=== PATIENT | male | born 1970 | race Caucasian/White ===

== ENCOUNTER 2019-12-30 16:11 | Emergency (ER) | payer SELFPAY ==
[~2019-12-30] VITALS: Ht 177.8 cm; Wt 95.0 kg
[2019-12-30 16:22] VITALS: BP 141/101
--- NOTE | 2019-12-30 16:36 | PHYS DOC ---
Past Medical History Past Medical History: A-Fib Past Surgical History: Other (LEFT BICEP TENDON SURGERY) General Adult EDM: Chief Complaint: UPPER EXTREMITY PAIN HPI: HPI: Patient is a 49 year old male who presented to ER with left arm pain after he [place] He heard a loud pop in his left shoulder and then started having severe pain at the proximal part of left bicep area. He felt like he ruptured the bicep tendon. He torn the same tendon in the past, had surgery to fix it. He called his Orthopedic surgeon in [place] who will see him on Tuesday when he get back home. Patient came here for pain control. He denied any numbness on left upper extremity. Review of Systems: Review of Systems: Constitutional: Denies fever or chills. [] Eyes: Denies change in visual acuity. [] HENT: Denies nasal congestion or sore throat. [] Respiratory: Denies cough or shortness of breath. [] Cardiovascular: Denies chest pain or edema. [] GI: Denies abdominal pain, nausea, vomiting, bloody stools or diarrhea. [] : Denies dysuria. [] Musculoskeletal: Positive for left arm pain. Integument: Denies rash. [] Neurologic: Denies headache, focal weakness or sensory changes. [] Endocrine: Denies polyuria or polydipsia. [] Lymphatic: Denies swollen glands. [] Psychiatric: Denies depression or anxiety. [] Heart Score: Risk Factors: Risk Factors: DM, Current or recent (<one month) smoker, HTN, HLP, family history of CAD, obesity. Risk Scores: Score 0 - 3: 2.5% MACE over next 6 weeks - Discharge Home Score 4 - 6: 20.3% MACE over next 6 weeks - Admit for Clinical Observation Score 7 - 10: 72.7% MACE over next 6 weeks - Early Invasive Strategies Physical Exam: PE: Constitutional: Well developed, well nourished, no acute distress, non-toxic appearance. [] HENT: Normocephalic, atraumatic, bilateral external ears normal, oropharynx moist, no oral exudates, nose normal. [] Eyes: PERRLA, EOMI, conjunctiva normal, no discharge. [] Neck: Normal range of motion, no tenderness, supple, no stridor. [] Cardiovascular:Heart rate regular rhythm, no murmur [] Lungs & Thorax: Bilateral breath sounds clear to auscultation [] Abdomen: Bowel sounds normal, soft, no tenderness, no masses, no pulsatile masses. [] Skin: Warm, dry, no erythema, no rash. [] Back: No tenderness, no CVA tenderness. [] Extremities: There is an indentation at the proximal head of left bicep tendon, very tender to palpation. Neurologic: Alert and oriented X 3, normal motor function, normal sensory function, no focal deficits noted. [] Psychologic: Affect normal, judgement normal, mood normal. [] EKG: EKG: [] Radiology/Procedures: Radiology/Procedures: [][facility] [address] [place] [address] IMAGING REPORT Signed PATIENT: STEVO BENÍTEZ ACCOUNT: [id number] : 1970 LOCATION: ER AGE: 49 SEX: M EXAM STATUS: DEP ER ORD. PHYSICIAN: GENTRY SNYDER DO REASON: LEFT SHOULDER INJURED, BICEP TENDON RUPTURE? PROCEDURE: SHOULDER 2+V LEFT Exam: Left shoulder 3 views and left humerus 2 views INDICATION: Left shoulder injury, left arm pain TECHNIQUE: Frontal view of the left shoulder with internal and external rotation with transscapular Y views. Frontal and lateral views of the left humerus Comparisons: None FINDINGS: Shoulder: Bone mineralization is normal. No acute or healed fractures. Soft tissues are unremarkable. The acromioclavicular joint appears mildly widened. Humerus: Bone mineralization is normal. No acute or healed fractures. Soft tissues are unremarkable. Joint spaces are well-maintained. IMPRESSION: 1. Left acromioclavicular joint appears mildly widened. Consider bilateral AC joint views for further evaluation. 2. No acute osseous abnormality of the left humerus. Electronically signed by: Tracey Trinidad MD (12/30/2019 5:35 PM) [id number] DICTATED and SIGNED BY: TRACEY TRINIDAD MD DATE: 12/30/19 1735 Course & Med Decision Making: Course & Med Decision Making Pertinent Labs and Imaging studies reviewed. (See chart for details) Patient patient is a 49-year-old male who was evaluated in ER due to left bicep tendon injury. He has history of left bicep tendon rupture in the past status post surgery. Patient will need to follow-up with his orthopedic surgeon next week for further evaluation and treatment. Stanley Disclaimer: Stanley Disclaimer: This electronic medical record was generated, in whole or in part, using a voice recognition dictation system. Departure Departure Impression: Primary Impression: Rupture of left proximal biceps tendon Disposition: 01 HOME SELF CARE/HOMELESS Condition: STABLE Patient Instructions: Biceps Tendon Disruption (Proximal) with [facility] Additional Instructions: please follow up with your orthopedic surgeon in [place] next week. Scripts Oxycodone HCl/Acetaminophen (Percocet 5-325 mg Tablet) 1 Each Tablet 1 TAB PO PRN QID PRN for PAIN MDD 2 Tablet(s) for 5 Days, #15 TAB 0 Refills Prov: GENTRY SNYDER DO 12/30/19 GENTRY SNYDER DO Dec 30, 2019 16:36
[2019-12-30] MEDS ORDERED: OXYC-325 PO (17:15)
--- NOTE | 2019-12-30 17:38 | RAD ---
Exam: Left shoulder 3 views and left humerus 2 views INDICATION: Left shoulder injury, left arm pain TECHNIQUE: Frontal view of the left shoulder with internal and external rotation with transscapular Y views. Frontal and lateral views of the left humerus Comparisons: None FINDINGS: Shoulder: Bone mineralization is normal. No acute or healed fractures. Soft tissues are unremarkable. The acromioclavicular joint appears mildly widened. Humerus: Bone mineralization is normal. No acute or healed fractures. Soft tissues are unremarkable. Joint spaces are well-maintained. IMPRESSION: 1. Left acromioclavicular joint appears mildly widened. Consider bilateral AC joint views for further evaluation. 2. No acute osseous abnormality of the left humerus. Electronically signed by: Tracey Rachel MD (12/30/2019 5:35 PM) [id number]
== END 2019-12-30 17:25 | disposition home or self-care (01) ==
LOC: ER 16:11
DX: S46.212A Strain of muscle, fascia and tendon of other parts of biceps, left arm, initial encounter (principal); I48.91 Unspecified atrial fibrillation; X50.0XXA Overexertion from strenuous movement or load, initial encounter; Y93.89 Activity, other specified; Y92.520 Airport as the place of occurrence of the external cause; Y99.8 Other external cause status
CPT/HCPCS: 73030; 73060; 99284; A4565